=== PATIENT | male | born 1985 | race Caucasian/White ===

== ENCOUNTER → 2017-09-23 | Outpatient (CLI) | payer OTHER ==
--- NOTE | 2017-09-23 12:46 | Diagnostic Imaging Report ---
CT scan of the RIGHT WRIST, WITHOUT contrast. CT scan of the RIGHT HAND, WITHOUT contrast. TECHNIQUE: Standard departmental protocols were used. Sagittal and coronal reformatted images were obtained. PROTOCOL: Routine COMPLICATIONS: None RADIATION DOSE: Total DLP = 152.22 mGy*cm HISTORY: Fell, pain, possible hairline fracture COMPARISON: None. FINDINGS: Bones: No acute displaced fracture. A 2 to 3 mm nonaggressive sclerotic focus at the base of the second metacarpal bone, likely a small bone island. Joints: No dislocation. Soft tissues: Appear unremarkable. IMPRESSION: No acute displaced fracture. Signed by: Dr. Abram Addison D.O., M.M.M. on 09/23/2017 12:42 PM
== END ==
LOC: CT 11:36
PROVIDERS: ATTEND Family Medicine
DX: M79.641 Pain in right hand (principal); M25.531 Pain in right wrist